=== PATIENT | male | born 1950 ===

== ENCOUNTER 2022-10-23 06:00 | Day surgery (SDC) | payer OTHER | END 2022-10-23 10:00 | disposition home or self-care (01) | LOC: AMB-ENDOS 06:00 | PROVIDERS: ATTEND Surgery | DX: C19 Malignant neoplasm of rectosigmoid junction (principal); K57.30 Diverticulosis of large intestine without perforation or abscess without bleeding; Z20.822 Contact with and (suspected) exposure to COVID-19 ==

== ENCOUNTER → 2022-11-05 06:00 | Outpatient (CLI) | payer OTHER ==
[~2022-11-05] VITALS: Ht 167.6 cm; Wt 77.1 kg
[~2022-11-05 06:00] MED LIST: ALL DAY ALLERGY10 M3 PO
== END | disposition home or self-care (01) ==
LOC: LAB 06:00 → ADM 12:45 → EDSTATUS 11-10 12:45 → CIR.AMB 11-10 12:45
PROVIDERS: ATTEND Surgery
DX: C19 Malignant neoplasm of rectosigmoid junction (principal); R59.0 Localized enlarged lymph nodes; K92.1 Melena; K59.09 Other constipation; I10 Essential (primary) hypertension; Z03.818 Encounter for observation for suspected exposure to other biological agents ruled out

== ENCOUNTER 2023-02-26 09:17 | Day surgery (SDC) | payer OTHER ==
[~2023-02-26] VITALS: Ht 168.9 cm; Wt 77.1 kg
[2023-02-26] MEDS ORDERED: TRAM1TAB98 PO (12:31)
== END 2023-02-26 14:30 | disposition home or self-care (01) ==
LOC: CIR.AMB 09:17
PROVIDERS: ATTEND Surgery
DX: C20 Malignant neoplasm of rectum (principal); K92.1 Melena; K59.09 Other constipation; I10 Essential (primary) hypertension; Z20.822 Contact with and (suspected) exposure to COVID-19

== ENCOUNTER 2024-04-27 09:30 | Inpatient (IN) | payer OTHER ==
[~2024-04-27] VITALS: Ht 167.6 cm; Wt 75.7 kg
[~2024-04-27 09:30] MED LIST changes: +ABANEU-SL TABL1 EACH SL; +ALBUTEROL2.5 MG/3 M IH; +FUSION PLUS CA1 EACH PO; +SIMETHICONE125 M1 PO; +TAMS0.4C PO; +TRAM1TAB98 PO
[2024-05-05] MEDS ORDERED: MORPHINE SULFATE 4 MG/ML CARTRIDGE IV PRN (11:30)
[2024-05-05] MEDS ORDERED: ONDANSETRON HCL 2 MG/ML VIAL IV PRN (11:30)
[2024-05-05] MEDS ORDERED: DEXTROSE 50 % IN WATER 0.5 G/ML DISP.SYRIN IV PRN (11:30)
[2024-05-05] MEDS ORDERED: RINGERS SOLUTION,LACTATED 1,000 ML IV SCH (11:30)
[2024-05-05] MEDS ORDERED: OxyCODONE HCL 5 MG TABLET (ROXICODONE) PO PRN (11:30)
[2024-05-05] MEDS ORDERED: CHLORHEXIDINE GLUCONATE 120 ML BOTTLE TOP ONE (12:00)
[2024-05-05] MEDS ORDERED: PIPERACILLIN/TAZOBACTAM SODIUM 3.375 GM VIAL IV SCH ×2 (12:00→18:00)
[2024-05-05] MEDS ORDERED: PIPERACILLIN/TAZOBACTAM SODIUM 3.375 GM VIAL IV NR (12:05)
[2024-05-05] MEDS ORDERED: SUGAMMADEX SODIUM 200 MG/2 ML VIAL IV ONE (13:30)
[2024-05-05] MEDS ORDERED: POVIDONE-IODINE 118 ML BOTT TOP ONE (13:30)
[2024-05-05] MEDS ORDERED: MORPHINE SULFATE 4 MG/ML VIAL IV ONE (14:05)
[2024-05-05 15:37] LABS: HEMATOCRIT 38.9 % (39.0-48.0); HEMOGLOBIN 13.7 g/dL (13-16.00); MEAN CORPUSCULAR HEMOGLOBIN 34.4 pg (27.00-32.0); MEAN CORPUSCULAR HGB CONC 35.1 g/dl (32.0-36.0); PLATELET COUNT 244 K/uL (150-450); RED BLOOD COUNT 3.97 M/uL (4.00-6.00); RED CELL DISTRIBUTION WIDTH 12.1 % (11.5-14.5)
[2024-05-05 16:03] LABS: ALBUMIN 3.6 gm/dL (3.4-5.0); CALCIUM 9.1 mg/dL (8.5-10.1); CREATININE SERUM 1.11 mg/dL (0.70-1.30); GFR 65.3; MAGNESIUM 1.7 mg/dL (1.8-2.4); PHOSPHOROUS 2.7 mg/dL (2.5-4.9); POTASSIUM 4.42 mEq/L (3.5-5.1)
[2024-05-05] MEDS ORDERED: HYOSCYAMINE SULFATE 0.125 MG TAB.SUBL SL SCH (17:00)
[2024-05-05] MEDS ORDERED: POLYETHYLENE GLYCOL 3350 17 GM BLIST.PACK PO SCH (17:00)
[2024-05-05] MEDS ORDERED: GABAPENTIN 300 MG CAPSULE PO SCH (17:00)
[2024-05-05 18:00] VITALS: BP 150/80; O2SAT 98
[2024-05-05] MEDS ORDERED: ACETAMINOPHEN 500 MG GEL..CAP PO SCH (20:00)
[2024-05-05] MEDS ORDERED: FAMOTIDINE/PF 20 MG/2 ML VIAL IV PUSH SCH (21:00)
[2024-05-06 01:51] VITALS: BP 122/70; O2SAT 97
[2024-05-06 08:00] VITALS: BP 141/72; O2SAT 95
[2024-05-06 08:48] LABS: HEMATOCRIT 37.6 % (39.0-48.0); HEMOGLOBIN 13.1 g/dL (13-16.00); MEAN CELL VOLUME 97.9 fL (80.0-100.00); MEAN CORPUSCULAR HEMOGLOBIN 34.2 pg (27.00-32.0); MEAN CORPUSCULAR HGB CONC 34.9 g/dl (32.0-36.0); PLATELET COUNT 264 K/uL (150-450); RED BLOOD COUNT 3.85 M/uL (4.00-6.00); RED CELL DISTRIBUTION WIDTH 12.2 % (11.5-14.5)
[2024-05-06 08:50] LABS: ALBUMIN 3.4 gm/dL (3.4-5.0); CREATININE SERUM 1.13 mg/dL (0.70-1.30); GFR 63.97; MAGNESIUM 1.8 mg/dL (1.8-2.4); PHOSPHOROUS 3.6 mg/dL (2.5-4.9); POTASSIUM 4.58 mEq/L (3.5-5.1)
[2024-05-06] MEDS ORDERED: ENOXAPARIN SODIUM 40 MG/0.4 ML SYRINGE SUBCUTANEO SCH (17:00)
[2024-05-06 18:25] VITALS: BP 137/53; O2SAT 96
[2024-05-07 00:35] VITALS: BP 129/82; O2SAT 98
[2024-05-07 08:28] VITALS: BP 156/88; O2SAT 96
[2024-05-07] MEDS ORDERED: ENOXAPARIN SODIUM 40 MG/0.4 ML SYRINGE SUBCUTANEO SCH (09:00)
[2024-05-07] MEDS ORDERED: HYOSCYAMINE0.125 M1 SL (13:20)
[2024-05-07] MEDS ORDERED: GABAPENTIN300 MG PO (13:20)
== END 2024-05-07 15:10 | disposition home or self-care (01) | DRG 348 ==
LOC: O/R 05-05 07:27 → SURH 05-05 09:30
PROVIDERS: ADMIT Surgery; ATTEND Surgery
PROC: 0DBB4ZZ Excision of Ileum, Percutaneous Endoscopic Approach (ICD-10-PCS; principal; 2024-05-05 11:30)
DX: K92.1 Melena (principal); C20 Malignant neoplasm of rectum; K59.09 Other constipation

== ENCOUNTER 2025-01-12 08:28 | Day surgery (SDC) | payer OTHER ==
[2025-01-09 12:47] LABS: ALBUMIN 3.8 gm/dL (3.4-5.0); BILIRUBIN TOTAL 0.67 mg/dL (0.3-1.2); CALCIUM 9.1 mg/dL (8.5-10.1); CREATININE SERUM 1.17 mg/dL (0.70-1.30); GFR 61.28; GLOBULINA 3.5 G/DL (2.4-3.5); POTASSIUM 4.19 mEq/L (3.5-5.1); TOTAL PROTEIN 7.3 gm/dL (6.4-8.2)
[~2025-01-12 08:28] MED LIST changes: +GABAPENTIN300 MG PO; +HYOSCYAMINE0.125 M1 SL
[2025-01-12] MEDS ORDERED: LIDOCAINE HCL 1%/EPINEPHRINE 20ML VIAL IJ ONE (10:08)
[2025-01-12] MEDS ORDERED: BUPIVACAINE HCL/Mpf 0.5% 10ML VIAL ONE (10:08)
[2025-01-12] MEDS ORDERED: TRAM1TAB98 PO (10:51)
[2025-01-12] MEDS ORDERED: CEFAZOLIN SODIUM 1,000 MG VIAL IV ONE (11:15)
== END 2025-01-12 13:10 | disposition home or self-care (01) ==
LOC: CIR.AMB 08:28
PROVIDERS: ATTEND Surgery
DX: T82.594A Other mechanical complication of infusion catheter, initial encounter (principal); C20 Malignant neoplasm of rectum